=== PATIENT | female | born 1990 | race Caucasian/White ===

== ENCOUNTER 2019-12-21 10:12 | Outpatient (REF) | payer BC, SELFPAY ==
--- NOTE | 2019-12-21 09:00 | CER_PTH ---
PATIENT: ROLDAN TENORIO LOC: [facility] U#:[id number] AGE/SX: 29/F ROOM: RE12/21/[address]: Rosenda Daly : 1990 BED: DIS: 12/21/2019 SPEC #: [id number] RECD: 12/21/19 12:40 STATUS: FRANCISCO J REQ #: [id number] ALAYNA: 12/21/19 09:[address]: Rosenda Daly DEPT: Surgical Specimen RECD BY: Sabrina Toledo ENTERED: 12/21/19 12:41 SP TYPE: CER LACHELLE DR: Unknown,Unknown Tissues: 1 - CERVICAL BIOPSY 2 - CERVICAL BIOPSY Procedures: GROSS AND MICRO LEVEL 5 Comments: [id number]
== END 2019-12-21 10:32 ==
LOC: LBN 10:12
PROVIDERS: Visit Provider Obstetrics & Gynecology Gynecology
DX: N87.1 Moderate cervical dysplasia (principal); Z87.410 Personal history of cervical dysplasia
CPT/HCPCS: 88305; 88307